=== PATIENT | female | born 1980 | race Caucasian/White ===

== ENCOUNTER 2021-02-05 10:31 | Emergency (ER) | payer MEDICAID ==
[~2021-02-05] VITALS: Ht 167.6 cm; Wt 68.2 kg
[2021-02-05 13:08] VITALS: BP 126/72
[2021-02-05] MEDS ORDERED: HYDROcodone/acetaminophen 5mg/325mg tablet PO ONE (13:20)
[2021-02-05] MEDS ORDERED: HYDR-3965 PO (14:28)
== END 2021-02-05 14:39 | disposition home or self-care (01) ==
LOC: ER 10:32
DX: M25.532 Pain in left wrist (principal); M25.531 Pain in right wrist; M79.644 Pain in right finger(s); M19.90 Unspecified osteoarthritis, unspecified site; Z79.899 Other long term (current) drug therapy
CPT/HCPCS: 29125; 73130; 99283